=== PATIENT | female | born 1965 | race Caucasian/White ===

== ENCOUNTER 2016-12-14 15:59 | Emergency (ER) | payer MEDICAID ==
[~2016-12-14] VITALS: Ht 157.5 cm; Wt 56.0 kg
[2016-12-14 17:22] LABS: ASPARTATE AMINO TRANSFERASE 26 U/L (15-37); BLOOD UREA NITROGEN 16 mg/dL (7-18)
[2016-12-14 20:52] VITALS: BP 110/69
== END 2016-12-14 20:55 | disposition home or self-care (01) ==
LOC: ED 20:49
DX: R10.84 Generalized abdominal pain (principal); F10.10 Alcohol abuse, uncomplicated; K75.9 Inflammatory liver disease, unspecified; F12.10 Cannabis abuse, uncomplicated; F15.10 Other stimulant abuse, uncomplicated
CPT/HCPCS: 36415; 74022; 80053; 81001; 83690; 85025; 87086

== ENCOUNTER 2018-12-18 10:36 | Emergency (ER) | payer MEDICAID ==
[~2018-12-18] VITALS: Ht 157.5 cm; Wt 50.0 kg
[~2018-12-18 10:36] MED LIST: SULF1TAB24 PO
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
[2018-12-18] MEDS ORDERED: LORazepam 0.5MG TABLET ONE (10:51)
[2018-12-18] MEDS ORDERED: KETOROLAC 30 MG/1 ML ONE (10:52)
[2018-12-18] MEDS ORDERED: KETOROLAC 30 MG/1 ML IM ONE (11:00)
[2018-12-18] MEDS ORDERED: LORazepam 0.5MG TABLET PO ONE (11:00)
--- NOTE | 2018-12-18 11:01 | NUR ---
MEDICATED PER ORDER, PT CRYING, AND RESTLESS. J[employer] POLICE AT BS
--- NOTE | 2018-12-18 12:54 | NUR ---
I.S. INSTRUCTIONS GIVEN TO PATIENT, PT VERBALZIED UNDERSTANDING
--- NOTE | 2018-12-18 13:03 | NUR ---
PT TO X RAY VIA JOHANNE
--- NOTE | 2018-12-18 13:14 | NUR ---
REPORT TO ROXANE KELLEY, PLAN OF CARE DISCUSSED
--- NOTE | 2018-12-18 13:26 | NUR ---
RECEIVED REPORT FROM WARREN DE OLIVEIRA. PT RESTING ON [facility]. NADN. WHELAN.
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
--- NOTE | 2018-12-18 14:00 | NUR ---
SW AT BEDSIDE.
[2018-12-18 14:15] VITALS: BP 121/78
== END 2018-12-18 14:49 | disposition home or self-care (01) ==
LOC: ED 14:43
DX: S22.31XA Fracture of one rib, right side, initial encounter for closed fracture (principal); S52.591A Other fractures of lower end of right radius, initial encounter for closed fracture; S00.11XA Contusion of right eyelid and periocular area, initial encounter; S40.021A Contusion of right upper arm, initial encounter; F10.220 Alcohol dependence with intoxication, uncomplicated; Z90.49 Acquired absence of other specified parts of digestive tract; Z90.710 Acquired absence of both cervix and uterus; F17.200 Nicotine dependence, unspecified, uncomplicated; Y04.8XXA Assault by other bodily force, initial encounter; Y93.89 Activity, other specified; Y92.89 Other specified places as the place of occurrence of the external cause; Y99.8 Other external cause status
CPT/HCPCS: 29105; 70450; 70486; 71101; 73060; 73080; 96372; 99284; J1885

== ENCOUNTER 2019-08-01 10:23 | Emergency (ER) | payer MEDICAID ==
[~2019-08-01] VITALS: Ht 160 cm; Wt 54.0 kg
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
--- NOTE | 2019-08-01 10:35 | NUR ---
REPORT TO MATEUS KELLEY
--- NOTE | 2019-08-01 10:40 | NUR ---
PT REPOSITION ON GURNEY AND WARM BLANKETS PLACED. PT TO READIOLOGY WITH TECH TRANSPORT.
--- NOTE | 2019-08-01 11:15 | NUR ---
PT RTD FROM RADIOLOGY, NOW SLEEPING, RESP EVEN, NON LABORED. CALL LIGHT W/I REACH, NAD NOTED
[2019-08-01 11:30] VITALS: BP 99/69
--- NOTE | 2019-08-01 12:15 | NUR ---
PT CONTINUES SLEEPING, RESP EVEN AND NON-LABORED. PT ARROUSES TO VERBAL STIM, REQUESTS FOOD. MEAL TRAY ORDERED AND PAIN MED REQUESTED FROM PROVIDER
--- NOTE | 2019-08-01 12:23 | NUR ---
PT INCONTINENT OF URINE, BED LINNENS CHANGED AND DRY GOWN ON.
[2019-08-01] MEDS ORDERED: ACETAMINOPHEN 325 MG TABLET PO ONE (13:00)
--- NOTE | 2019-08-01 13:21 | NUR ---
PATIENT AMBULATORY STEADY GAIT. PROVIDED MEAL TRAY AND PT ATE 100%. PT STATES THAT SHE HAS A BED TONIGHT AT THE [facility]. TAXI VOUCHER PROVIDED TO PT [facility] GET [facility]. CLEAN SOCKS, UNDERWESR AND A SWEATER PROVIDED. PT HAS A COAT. Patient/Caregiver given discharge instructions and they have confirmed that they understand the instructions. Patient ambulatory with steady gait.
--- NOTE | 2019-08-01 13:29 | NUR ---
SBAR HAND-OFF REPORT RECEIVED FROM WARREN IGNACIO. ASSUMING CARE OF PATIENT.
== END 2019-08-01 13:52 | disposition home or self-care (01) ==
LOC: ED 13:34
DX: S22.31XA Fracture of one rib, right side, initial encounter for closed fracture (principal); F10.120 Alcohol abuse with intoxication, uncomplicated; Y90.0 Blood alcohol level of less than 20 mg/100 ml; Y04.8XXA Assault by other bodily force, initial encounter; Y93.89 Activity, other specified; Y92.89 Other specified places as the place of occurrence of the external cause; Y99.8 Other external cause status
CPT/HCPCS: 99283

== ENCOUNTER 2020-03-28 21:41 | Emergency (ER) | payer MEDICAID ==
[~2020-03-28] VITALS: Ht 160 cm; Wt 50.0 kg
[2020-03-28 21:50] VITALS: BP 96/62
--- NOTE | 2020-03-28 23:02 | NUR ---
TECH AT BEDSIDE FOR SPLINT
--- NOTE | 2020-03-28 23:11 | NUR ---
PT CALLING FRIEND FOR RIDE HOME. PT STATES SHE'LL WAIT IN LOBBY FOR RIDE.
== END 2020-03-28 23:14 | disposition home or self-care (01) ==
LOC: ED 22:40
DX: S62.647A Nondisplaced fracture of proximal phalanx of left little finger, initial encounter for closed fracture (principal); F17.200 Nicotine dependence, unspecified, uncomplicated; Z90.89 Acquired absence of other organs; Z90.710 Acquired absence of both cervix and uterus; W18.30XA Fall on same level, unspecified, initial encounter; Y93.89 Activity, other specified; Y92.410 Unspecified street and highway as the place of occurrence of the external cause; Y99.8 Other external cause status
CPT/HCPCS: 29125; 99283

== ENCOUNTER 2020-05-24 07:43 | Emergency (ER) | payer MEDICAID ==
[~2020-05-24] VITALS: Ht 157.5 cm; Wt 52.0 kg
[2020-05-24 07:54] VITALS: BP 112/80
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
--- NOTE | 2020-05-24 09:10 | NUR ---
pt amb to br with steady gait.
--- NOTE | 2020-05-24 09:36 | NUR ---
emt at bedside for splint. socks/pants provided.
--- NOTE | 2020-05-24 09:46 | NUR ---
Patient given discharge instructions and they have confirmed that they understand the instructions. Patient ambulatory with steady gait. taxi voucher given at vt.
== END 2020-05-24 09:47 | disposition home or self-care (01) ==
LOC: ED 08:15
DX: S62.347A Nondisplaced fracture of base of fifth metacarpal bone, left hand, initial encounter for closed fracture (principal); Z90.49 Acquired absence of other specified parts of digestive tract; Z59.0 Homelessness; X58.XXXA Exposure to other specified factors, initial encounter; Y93.89 Activity, other specified; Y92.89 Other specified places as the place of occurrence of the external cause; Y99.8 Other external cause status
CPT/HCPCS: 29125; 99283

== ENCOUNTER 2020-06-17 15:08 | Emergency (ER) | payer MEDICAID ==
[~2020-06-17] VITALS: Ht 160 cm; Wt 36.0 kg
--- NOTE | 2020-06-17 15:20 | NUR ---
DR MARCIAL AT BEDSIDE TO NATHEN PT
--- NOTE | 2020-06-17 15:31 | NUR ---
report recived per EMS, vss, complaints of right arm pain, pt refused piv in route, etoh odor noted, o2 sat at 89 sleeping, o2 nc @ 2lpm, mummble speech, not compliant with questions
--- NOTE | 2020-06-17 16:44 | NUR ---
PT SLEEPING, SLING APPLIED TO RIGHT ARM BY EMT. PULSE OX AND AUTO BP IN PLACE.
--- NOTE | 2020-06-17 17:45 | NUR ---
PT CONT SLEEPING. CONT WITH MONITORS IN PLACE. AWAITING FURTHER DISPOSITION.
--- NOTE | 2020-06-17 18:54 | NUR ---
BS REPORT TO JD KELLEY.
--- NOTE | 2020-06-17 18:55 | NUR ---
BEDSIDE REPORT FROM ALEN KELLEY, PT CARE TRANSFERRED AT THIS TIME.
--- NOTE | 2020-06-17 19:42 | NUR ---
PT RESTING ON GURNEY, EYES CLOSED, EVEN AND UNLABORED RESPIRATIONS, NAD, APPEARS COMFORTABLE, WCTM.
--- NOTE | 2020-06-17 21:28 | NUR ---
pt resting on gurney, nad, no change in condition, appears comfortable. even and unlabored respirations. wctm.
[2020-06-17 21:36] VITALS: BP 130/80
--- NOTE | 2020-06-17 22:04 | NUR ---
TASK RN: PT. ABLE TO AMBULATE TO D/C DESK FROM ED 16 WITH STEAY GAIT.
== END 2020-06-17 22:10 ==
LOC: ED 22:04
DX: S42.201A Unspecified fracture of upper end of right humerus, initial encounter for closed fracture (principal); F10.20 Alcohol dependence, uncomplicated; G92 Toxic encephalopathy; Z90.89 Acquired absence of other organs; Z90.710 Acquired absence of both cervix and uterus; W18.39XA Other fall on same level, initial encounter; Y93.89 Activity, other specified; Y92.89 Other specified places as the place of occurrence of the external cause; Y99.8 Other external cause status; Y90.0 Blood alcohol level of less than 20 mg/100 ml
CPT/HCPCS: 70450; 99285

== ENCOUNTER 2020-12-16 14:26 | Emergency (ER) | payer MEDICAID ==
[~2020-12-16] VITALS: Ht 162.6 cm; Wt 50.0 kg
[~2020-12-16 14:26] MED LIST changes: +SULF-23 PO; -SULF1TAB24 PO
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
--- NOTE | 2020-12-16 15:00 | NUR ---
Pt sleepin in R side curled up in a ball at this time.
--- NOTE | 2020-12-16 15:37 | NUR ---
Pt taken to radiology by duran with radiologic technology program director.
[2020-12-16 15:45] LABS: BASOPHILS % (AUTO) 4 % (0-1); EOSINOPHILS % (AUTO) 1 % (1-7); LYMPHOCYTES % (AUTO) 51 % (22-44); MEAN CORPUSCULAR HEMOGLOBIN 33.3 pg (27.0-34.8); MEAN CORPUSCULAR HGB CONC 33.9 g/dL (32.4-35.8); MEAN PLATELET VOLUME 7.1 fL (7.4-10.4); MONOCYTES % (AUTO) 13 % (2-9); NEUTROPHILS % (AUTO) 31 % (42-75); PLATELET COUNT 375 x10^3/uL (130-400); RED BLOOD COUNT 4.44 x10^6/uL (3.82-5.3); RED CELL DISTRIBUTION WIDTH 13.4 % (9.6-15.2)
[2020-12-16 15:56] LABS: ANION GAP 10 mmol/L (5-15); CHLORIDE 113 mmol/L (98-107)
[2020-12-16 15:57] LABS: ALBUMIN 3.7 g/dL (3.4-5.0); CALCIUM 8.4 mg/dL (8.5-10.1); CREATININE 0.49 mg/dL (0.55-1.02)
[2020-12-16 16:22] LABS: MD SCAN
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
[2020-12-16] MEDS ORDERED: HYDROmorphone 1 MG/ML, 1ML INJ ONE (17:47)
--- NOTE | 2020-12-16 17:47 | NUR ---
DIANE RN: PROVIDED MEAL FOR PATIENT.
--- NOTE | 2020-12-16 17:53 | NUR ---
Dinner tray arrived at bedside and pt is slowly eating while watching TV. Dilaudid IM given with aseptic technique and tolerated with minimal c/o pain during injection. Site covered with bandaid. Pt to be d/c'd home after done eating dinner.
[2020-12-16] MEDS ORDERED: HYDROmorphone 1 MG/ML, 1ML INJ IM ONE (18:00)
--- NOTE | 2020-12-16 18:42 | NUR ---
Pt up for d/c and has eaten about 10% of her dinner and drank 2 bottles of water. Pants provided with her wet pants placed in belongings bag for her to take home.
[2020-12-16 18:43] VITALS: BP 119/66
== END 2020-12-16 19:10 | disposition home or self-care (01) ==
LOC: ED 14:56
DX: S22.41XA Multiple fractures of ribs, right side, initial encounter for closed fracture (principal); F10.220 Alcohol dependence with intoxication, uncomplicated; R07.89 Other chest pain; F17.210 Nicotine dependence, cigarettes, uncomplicated; Y90.0 Blood alcohol level of less than 20 mg/100 ml; Y04.8XXA Assault by other bodily force, initial encounter; Y93.89 Activity, other specified; Y92.89 Other specified places as the place of occurrence of the external cause; Y99.8 Other external cause status
CPT/HCPCS: 36415; 70150; 71101; 80048; 80320; 82040; 85025; 96372; 99285; J1170; G0480

== ENCOUNTER 2021-02-16 17:04 | Emergency (ER) | payer MEDICAID ==
[~2021-02-16] VITALS: Ht 162.6 cm; Wt 50.0 kg
[2021-02-16] MEDS ORDERED: NALOXONE 1 MG/ML, 2ML ONE (17:26)
[2021-02-16] MEDS ORDERED: SODIUM CHLORIDE 0.9% 1,000ML IVBOLUS ONE (18:00)
[2021-02-16] MEDS ORDERED: THIAMINE 100 MG in SODIUM CHLORIDE 0.9% 50 ML IVPB ONE (18:00)
--- NOTE | 2021-02-16 18:10 | NUR ---
LAB AT BEDSIDE.
--- NOTE | 2021-02-16 18:13 | NUR ---
TASK RN: PT VOMITTED ON FLOOR. AROUSABLE TO VOICE. 1L NS BOLUS STARTED PER EMAR.
[2021-02-16 18:22] LABS: BASOPHILS % (AUTO) 3 % (0-1); EOSINOPHILS % (AUTO) 1 % (1-7); LYMPHOCYTES % (AUTO) 57 % (22-44); MEAN CORPUSCULAR HEMOGLOBIN 32.1 pg (27.0-34.8); MEAN CORPUSCULAR HGB CONC 34.6 g/dL (32.4-35.8); MEAN PLATELET VOLUME 7.8 fL (7.4-10.4); MONOCYTES % (AUTO) 12 % (2-9); NEUTROPHILS % (AUTO) 28 % (42-75); PLATELET COUNT 377 x10^3/uL (130-400); RED BLOOD COUNT 4.62 x10^6/uL (3.82-5.3)
[2021-02-16 18:34] LABS: ALANINE AMINOTRANSFERASE 36 U/L (12-78); ALBUMIN 3.7 g/dL (3.4-5.0); ANION GAP 10 mmol/L (5-15); CALCIUM 8.3 mg/dL (8.5-10.1); CHLORIDE 108 mmol/L (98-107); CREATININE 0.93 mg/dL (0.55-1.02)
[2021-02-16 18:47] LABS: ALKALINE PHOSPHATASE 129 U/L (45-117); BILIRUBIN,TOTAL 0.3 mg/dL (0.2-1.0); TOTAL PROTEIN 7.7 g/dL (6.4-8.2); TROPONIN I < 0.015 ng/mL (0.000-0.045)
--- NOTE | 2021-02-16 18:55 | NUR ---
REPORT TO WARREN MONIQUE.
[2021-02-16] MEDS ORDERED: NALOXONE 0.4 MG/ML, 1ML IVPush ONE (19:00)
[2021-02-16] MEDS ORDERED: POTASSIUM CHLORIDE 40 MEQ in SODIUM CHLORIDE 0.9% 500 ML IV ONE (19:00)
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
--- NOTE | 2021-02-16 19:31 | NUR ---
KCL infusion started on pump, scanners broken. Will continue to monitor pt closely.
--- NOTE | 2021-02-16 20:53 | NUR ---
Airway remains patent, o2 sats stable, responsive with painful stimuli loud verbal. VSS
--- NOTE | 2021-02-16 22:33 | NUR ---
Responds with loud verbal, painful stimuli. VSS
--- NOTE | 2021-02-16 23:52 | NUR ---
Wakes up with verbal, more responsive and less slurry. VSS. MTF
--- NOTE | 2021-02-17 00:33 | NUR ---
relief rn: pt sleeping. rr even non labored. vss. will ctm.
--- NOTE | 2021-02-17 01:12 | NUR ---
received report from WARREN Marrero
--- NOTE | 2021-02-17 01:17 | NUR ---
Report to WARREN Cisse
--- NOTE | 2021-02-17 01:53 | NUR ---
patient sleeping, respiration unlabored.
--- NOTE | 2021-02-17 02:23 | NUR ---
patient woke up and assisted to bathroom with very unsteady gait. aware.
--- NOTE | 2021-02-17 02:50 | NUR ---
2 cups of water provided. patient fall back to sleep.
--- NOTE | 2021-02-17 04:17 | NUR ---
REPORT FROM RENEE KELLEY
[2021-02-17 05:07] VITALS: BP 128/75
--- NOTE | 2021-02-17 05:07 | NUR ---
Patient given discharge instructions and they have confirmed that they understand the instructions. Patient ambulatory with steady gait. NAD, all questions answered appropriately, denies additional needs at this time. No personal belongings left in room after discharge. Pt provided bus pass upon d/c
== END 2021-02-17 05:09 | disposition home or self-care (01) ==
LOC: ED 21:18
DX: F10.220 Alcohol dependence with intoxication, uncomplicated (principal); G31.2 Degeneration of nervous system due to alcohol; E87.6 Hypokalemia; Z72.9 Problem related to lifestyle, unspecified
CPT/HCPCS: 36415; 80053; 80320; 83735; 84484; 85025; 93005; 96365; 96375; 99285; J2310; J3411; J3480; J7030; J7040; G0480